=== PATIENT | female | born 1980 | race Caucasian/White ===

== ENCOUNTER 2019-09-10 07:00 | Inpatient (IN) ==
[2019-09-10] MEDS ORDERED: Famotidine 20 MG/2 ML VIAL IVP PRN (07:49)
[2019-09-10] MEDS ORDERED: Metoclopramide 10 MG/2 ML VIAL IVP PRN ×2 (07:49→12:32)
[2019-09-10] MEDS ORDERED: Naloxone 0.4 MG/ML INJ IVP PRN (07:49)
[2019-09-10] MEDS ORDERED: Ringers Solution, Lactated 1,000 ML IVC ONE (07:50)
[2019-09-10] MEDS ORDERED: Ringers Solution, Lactated 1,000 ML ONE (07:52)
[2019-09-10] MEDS ORDERED: Ringers Solution, Lactated 1,000 ML IVC SCH (08:00)
[2019-09-10 08:03] LABS: Basophils % 0.2 %; Eosinophils # 0.1 K/mcL (0.0-0.6); Eosinophils % 0.5 %; Hematocrit 36.5 % (35.3-44.9); Hemoglobin 12.6 g/dL (11.5-15.4); Immature Granulocytes % 0.5 % (0-4); Lymphocytes # 1.8 K/mcL (0.6-4.6); Lymphocytes % 19.6 %; Mean Corpuscular HGB Conc 34.5 g/dL (31.6-35.5); Mean Corpuscular Hemoglobin 32.6 pg (28.0-33.3); Mean Corpuscular Volume 94.6 fL (83.0-100.0); Mean Platelet Volume 10.2 fL (9.4-12.4); Monocytes # 0.5 K/mcL (0.0-1.3); Monocytes % 5.5 %; Neutrophils # 6.7 K/mcL (1.6-8.9); Platelet Count 196 K/mcL (140-400); Red Blood Count 3.86 M/mcL (3.82-4.97); Red Cell Distribution Width 13.3 % (11.5-14.5); Segmented Neutrophils % 73.7 %; White Blood Count 9.1 K/mcL (4.3-11.1)
[2019-09-10 08:13] LABS: Amphetamine Screen,Urine Negative ng/mL (Cutoff=1000); Barbiturate Screen,Urine Negative ng/mL (Cutoff=200); Benzodiazepines Screen,Urine Negative ng/mL (Cutoff=200); Cannabinoid Screen,Urine Negative ng/mL (Cutoff = 50); Cocaine Screen,Urine Negative ng/mL (Cutoff= 300); Opiate Screen,Urine Negative ng/mL (Cutoff=300); Phencyclidine Screen,Urine Negative ng/mL (Cutoff=25)
[2019-09-10] MEDS ORDERED: CeFAZolin Premix DUPLEX 2,000 MG/50 ML BAG IVPB ONE (08:16)
[2019-09-10] MEDS ORDERED: *HR* Oxytocin 10 UNIT/ML VIAL IM ONE (08:35)
[2019-09-10] MEDS ORDERED: *HR* Morphine Sulfate/PF 10 MG/10 ML AMPUL ONE (08:35)
[2019-09-10] MEDS ORDERED: *HR* FentaNYL (PF) 100 MCG/2 ML VIAL ONE (08:35)
[2019-09-10] MEDS ORDERED: *HR* HYDROmorphone (PF) 1 MG/ML SYRINGE IVP PRN (09:07)
[2019-09-10] MEDS ORDERED: Ondansetron 4 MG/2 ML VIAL IVP PRN ×2 (09:07→12:32)
[2019-09-10] MEDS ORDERED: *HR* Promethazine 25 MG/ML VIAL IVP PRN (09:07)
[2019-09-10] MEDS ORDERED: Acetaminophen IV 1,000 MG/100 ML INFUS..BTL IVPB ONE (09:07)
[2019-09-10] MEDS ORDERED: EPHEDrine 50 MG/ML VIAL ONE (09:19)
[2019-09-10] MEDS ORDERED: Ondansetron 4 MG/2 ML VIAL ONE (09:31)
[2019-09-10] MEDS ORDERED: Oxytocin 20 units/ LR 1000 mL 20 UNIT/1,000 ML BAG IVC ONE (10:32)
[2019-09-10] MEDS ORDERED: Simethicone 80 MG TAB.CHEW PO PRN (12:32)
[2019-09-10] MEDS ORDERED: Oxytocin 20 units/ LR 1000 mL 20 UNIT/1,000 ML BAG IVC SCH (12:32)
[2019-09-10] MEDS ORDERED: Sennosides 8.6 MG TABLET PO PRN (12:32)
[2019-09-10] MEDS: Ibuprofen 600 MG TABLET PO PRN ×2 (15:11→20:06)
[2019-09-10] MEDS: metroNIDAZOLE 500 MG TABLET PO SCH ×2 (15:12→20:06)
[2019-09-11] MEDS: Ibuprofen 600 MG TABLET PO PRN ×3 (05:36→18:42)
[2019-09-11] MEDS: metroNIDAZOLE 500 MG TABLET PO SCH ×3 (08:06→20:47)
[2019-09-11] MEDS: Prenatal Vit/FA 1 EACH TABLET PO SCH (08:06)
[2019-09-11 09:56] LABS: Basophils % 0.1 %; Eosinophils % 0.3 %; Hematocrit 31.4 % (35.3-44.9); Immature Granulocytes % 0.5 % (0-4); Lymphocytes % 9.2 %; Mean Corpuscular HGB Conc 32.8 g/dL (31.6-35.5); Mean Corpuscular Hemoglobin 32.7 pg (28.0-33.3); Mean Corpuscular Volume 99.7 fL (83.0-100.0); Mean Platelet Volume 10.4 fL (9.4-12.4); Monocytes # 0.5 K/mcL (0.0-1.3); Monocytes % 4.5 %; Neutrophils # 9.2 K/mcL (1.6-8.9); Platelet Count 172 K/mcL (140-400); Red Blood Count 3.15 M/mcL (3.82-4.97); Red Cell Distribution Width 13.7 % (11.5-14.5); Segmented Neutrophils % 85.4 %; White Blood Count 10.7 K/mcL (4.3-11.1)
[2019-09-11 09:57] LABS: Hemoglobin 10.3 g/dL (11.5-15.4)
[2019-09-11] MEDS: *HR* OxyCODONE/APAP 5/325 TABLET PO PRN ×2 (12:38→21:14)
[2019-09-12] MEDS: Ibuprofen 600 MG TABLET PO PRN ×3 (02:50→14:45)
[2019-09-12 08:04] VITALS: BP 119/69
[2019-09-12] MEDS: metroNIDAZOLE 500 MG TABLET PO SCH (08:18)
[2019-09-12] MEDS: Prenatal Vit/FA 1 EACH TABLET PO SCH (08:18)
[2019-09-12] MEDS: *HR* OxyCODONE/APAP 5/325 TABLET PO PRN ×2 (08:18→14:45)
== END 2019-09-12 16:15 | disposition home or self-care (01) | DRG 785 ==
LOC: 1NENULAB 07:10 → 1NENUOBS 12:33
PROVIDERS: ADMIT Obstetrics & Gynecology; ATTEND Obstetrics & Gynecology